=== PATIENT | male | born 1995 | race Caucasian/White ===

== ENCOUNTER 2019-01-03 19:55 | Emergency (ER) | payer OTHER ==
[~2019-01-03] VITALS: Ht 170.2 cm; Wt 61.7 kg
[2019-01-03] MEDS ORDERED: KEFLEX500 MG PO (21:17)
[2019-01-03] MEDS ORDERED: VALACYCLOVIR1000 MG PO (21:17)
[2019-01-03] MEDS ORDERED: PREDNISONE20 MG PO (21:17)
== END 2019-01-03 21:29 | disposition home or self-care (01) ==
LOC: ED 19:55
DX: G51.0 Bell's palsy (principal); H66.92 Otitis media, unspecified, left ear
CPT/HCPCS: 70450; 99284-25

== ENCOUNTER 2019-04-06 20:29 | Emergency (ER) | payer OTHER, SELFPAY ==
[~2019-04-06] VITALS: Ht 170.2 cm; Wt 61.7 kg
[~2019-04-06 20:29] MED LIST: KEFLEX500 MG PO; PREDNISONE20 MG PO; VALACYCLOVIR1000 MG PO
--- NOTE | 2019-04-07 12:44 | EKG ---
[facility] [address] [facility] [place], [place] [address] Signed Normal sinus rhythm with sinus arrhythmia Normal ECG No previous ECGs available Confirmed by DULCE KOTHARI MD ([id number] on 04/07/2019 12:44:15 PM Electronically Signed By: DULCE KOTHARI MD 04/07/19 1244 PATIENT NAME: HUNTER GRACEMALA NOLASCO Electrocardiogram DATE OF : [birth year] PHYSICIAN: DULCE KOTHARI MD REPORT #: [id number] REPORT IS CONFIDENTIAL AND NOT TO BE RELEASED WITHOUT AUTHORIZATION
== END 2019-04-07 00:01 | disposition home or self-care (01) ==
LOC: ED 20:29
DX: R06.00 Dyspnea, unspecified (principal); Z79.899 Other long term (current) drug therapy
CPT/HCPCS: 80053; 81001; 85025; 93005; 93010; 99285-25